=== PATIENT | female | born 1940 | race Caucasian/White ===

== ENCOUNTER → 2019-05-30 | Outpatient (CLI) | payer OTHER ==
[~2019-05-30] VITALS: Ht 157.5 cm; Wt 52.6 kg
[~2019-05-30] MED LIST: GABAPENTIN100 MG PO; NABUMETONE 500500 M1 PO; PROMETHAZINE/C118 ML GT; STIOLTO RESPIMAT4 GM INH; TRAMADOL 50 MG50 MG PO; VITAMINC500 PO; [UNRECOGNIZED DRUG - OTHER] PO
--- NOTE | 2019-05-31 14:06 | PATH ---
[facility] [address] [place] [address] PATHOLOGY RPT PROCEDURE Name: SREEKANTH GIANG Patrice Room #: REG [facility] Manolo#: [id number] ������������������ Admission: 05/30/19 ������������������ Date of : 42 Discharge: Report #: [id number] Path Case #: [id number] [facility] Accession Number: [id number] . 01 Material submitted: . stomach - BIOPSY OF GASTRIC . 01 Clinical history: . Screening, abdomen pain, melena Gastritis, hiatal hernia, esophagitis, diverticulosis . 02 Diagnosis: Gastric mucosa, gastritis, endoscopic biopsy: - Mild reactive gastropathy with focal intestinal metaplasia. - Negative for atrophy or dysplasia. - Negative for Helicobacter pylori (properly controlled immunohistochemical stain performed). (IUV:vitor; 05/31/2019) QMS/05/31/2019 . 02 Electronically signed: . Debora Coker MD, Pathologist NPI- [id number] . 01 Gross description: . The specimen is received in formalin, labeled "Sreekanth Giang, BX of gastric" and consists of multiple fragments of pink-marshall tissue measuring 0.7 x 0.6 x 0.2 cm in aggregate which are entirely submitted in A1. (SDY; 05/30/2019) SYU/SYU . 02 Pathologist provided ICD-10: K31.9 . 02 CPT . 343935, [id number] Specimen Comment: A courtesy copy of this report has been sent to Specimen Comment: [phone], . Specimen Comment: Report sent to and Performed at: [address], [place] [id number] MD Jacob Bingham MD Phone: [phone] Performed at: [address] [id number] MD Debora Coker MD Phone: [phone]
--- NOTE | 2019-06-03 10:31 | P ---
[facility] [place] [address] PROCEDURE REPORT Name: MITZYSREEKANTH [facility] #: [facility] [id number] Admission: 05/30/19 ������������������ Attend Phys: Gt Muro MD Discharge: ������������������ Date of : 41 Report #: [id number] THIS REPORT FOR: //name// CC: Gt Cabrera BRIEF HISTORY: The patient is a 78-year-old woman with recent melanotic stools. She has also had upper abdominal pain and also recently right lower quadrant abdominal pain. PREOPERATIVE DIAGNOSES: Melena, gastrointestinal bleeding. POSTOPERATIVE DIAGNOSIS: 1. Moderately severe left-sided diverticulosis coli with also few scattered diverticula in proximal colon. 2. Internal hemorrhoids. MEDICATIONS: Deep sedation with propofol per anesthesia. SPECIMEN: None. ESTIMATED BLOOD LOSS: None. PROCEDURE: Colonoscopy to cecum and terminal ileum. FINDINGS: Prior to propofol sedation, procedure of colonoscopy discussed with the patient as well as potential risks and its complications. She indicates she understands and desires to proceed. PROCEDURE IN DETAIL: The patient in left lateral decubitus position, digital examination was completed, which revealed no abnormalities. Subsequently, the Olympus video colonoscope was introduced in the rectum, advanced under direct vision. The scope was advanced in the sigmoid colon, which was quite tortuous and somewhat rigid and fixed due to moderately severe diverticular disease. We were unable to pass the scope through the sigmoid colon. The scope was withdrawn. The procedure was restarted with a pediatric colonoscope. On this occasion, the scope passed relatively easily through the sigmoid colon and in the proximal colon. The cecum was identified by the ileocecal valve and the appendiceal orifice. I was able to advance the scope across the ileocecal valve and visualize the distal segment of terminal ileum, which was inspected and noted to be unremarkable. At that point, the scope was slowly withdrawn and careful circumferential views were obtained. Upon slow withdrawal of the scope, the prep was good. The mucosa was within normal limits, normal vascular pattern, normal light reflex. No bleeding lesions were seen on today's exam. No neoplastic or inflammatory or vascular lesions were seen. In the proximal colon, there were few scattered diverticula, especially at the level of the [facility] [address] [place] [address] PROCEDURE REPORT Name: SREEKANTH FORRESTER Room #: REG [facility].#: [id number] Admission: 05/30/19 ������������������ Attend Phys: Gt Muro MD Discharge: ������������������ Date of : 41 Report #: [id number] hepatic flexure. Upon withdrawal of the scope, diverticular disease was not seen in the transverse colon. In the left colon, there was moderately severe diverticular disease without endoscopic evidence of diverticulitis. The scope was withdrawn in the rectum and no mucosal abnormalities were seen. Upon retroflexion, small hemorrhoids were seen. Scope was withdrawn. The patient tolerated the procedure well. CONDITION OF THE PATIENT UPON DISCHARGE: Following procedure, the patient was drowsy, arousable, conversant and will be discharged home when fully ambulatory. INSTRUCTIONS TO THE PATIENT AND FAMILY AT THE TIME OF DISCHARGE: No bleeding lesions were seen. Please see upper endoscopy report for additional details. No neoplastic lesions were seen. She does have significant diverticular disease and I suggest high fiber diet. She has had diffuse abdominal pain. I do not see an explanation for pain on examination today. She was noted to be somewhat tender in the right lower quadrant on exam today prior to the colonoscopy; however, no abnormalities were seen in the distal ileum or the proximal colon. If those symptoms should persist, she will return for further evaluation and possibly CT scan of the abdomen. For screening purposes, typical recommendation would be 10 years. However, at this point in life, she may not benefit from routine screening colonoscopy. She will return to care of Dr. Cabrera and return to see me as needed. Last colonoscopy was about 6 years ago. Withdrawal time from the cecum was 14 minutes 11 seconds. ��������������������������������������������� <ELECTRONICALLY SIGNED> ���������������������������������������� By: Gt Muro MD ��������������������������������������������� 06/03/19 1031 1057 0250 Gt Muro MD /nt
--- NOTE | 2019-06-03 10:31 | P ---
[facility] [address] [place] [address] PROCEDURE REPORT Name: FORRESTERSREEKANTH [facility] #: [facility] [id number] Admission: 05/30/19 ������������������ Attend Phys: Gt Muro MD Discharge: ������������������ Date of : 41 Report #: [id number] THIS REPORT FOR: //name// CC: Gt aCbrera DATE OF SERVICE: 05/30/2019 OUTPATIENT UPPER ENDOSCOPY REPORT BRIEF HISTORY: The patient is a 78-year-old woman who has diffuse abdominal pain and also recently had melena and hematemesis. PREOPERATIVE DIAGNOSES: Melena, hematemesis. POSTOPERATIVE DIAGNOSES: 1. Grade B erosive esophagitis. 2. A 3 cm sliding type hiatus hernia. 3. Diffuse gastritis. MEDICATIONS: Deep sedation with propofol per anesthesia. SPECIMENS: Biopsies of gastritis. ESTIMATED BLOOD LOSS: 3 mL. PROCEDURE: EGD with biopsy. FINDINGS: Prior to propofol sedation, procedure of upper endoscopy discussed with the patient as well as potential risks and its complications. She indicates she understands and desires to proceed. DESCRIPTION OF PROCEDURE: With the patient in left lateral decubitus position, the Olympus video endoscope was inserted in the cervical esophagus under direct vision without difficulty. Examination of this organ through its entire length revealed normal esophageal mucosa down into the distal esophagus. In the distal esophagus, multiple long erosions were seen consistent with grade B erosive esophagitis. The squamocolumnar junction was intact. A Mckinney mucosa was not seen. The scope was advanced and hiatus hernia was approximately 3 cm in greatest dimension. The mucosa and hernia was unremarkable. Scope was advanced in the stomach, which was examined on end view as well as retroflexed views. There was a pattern of diffuse gastritis. No ulcers, erosions or bleeding lesions were seen. There was mostly erythema in the antrum. Upon retroflexion, the hiatus hernia was seen. In the retroflexed position, normal squamocolumnar junction was seen as well. The pylorus, duodenal bulb and postbulbar sweep were [facility] [address] [place] [address] PROCEDURE REPORT Name: SREEKANTH FORRESTER Room #: REG [facility] M..#: [id number] Admission: 05/30/19 ������������������ Attend Phys: Gt Muro MD Discharge: ������������������ Date of : 41 Report #: [id number] inspected and noted to be unremarkable. At that point, the scope was slowly withdrawn and careful circumferential views confirmed the above findings. The patient tolerated the procedure well. CONDITION OF THE PATIENT UPON DISCHARGE: Following the procedure, the patient was drowsy, aroused, conversant and will be discharged home when fully ambulatory INSTRUCTIONS TO THE PATIENT AND FAMILY AT THE TIME OF DISCHARGE: We will follow up on the path and make further recommendations with regard to H. pylori. She clearly has reflux and will have her start omeprazole 40 mg daily. If she does well in about 8 weeks, may try to reduce to a lowest dose to control her symptoms. Proceed with colonoscopy at this time. Bleeding site was not identified today. ��������������������������������������������� <ELECTRONICALLY SIGNED> ���������������������������������������� By: Gt Muro MD ��������������������������������������������� 06/03/19 1031 1014 1151 Gt Muro MD /nt
== END | disposition home or self-care (01) ==
LOC: GI 07:34
DX: K57.30 Diverticulosis of large intestine without perforation or abscess without bleeding (principal); K57.90 Diverticulosis of intestine, part unspecified, without perforation or abscess without bleeding; K64.8 Other hemorrhoids; K31.9 Disease of stomach and duodenum, unspecified; K22.10 Ulcer of esophagus without bleeding; K44.9 Diaphragmatic hernia without obstruction or gangrene; J43.9 Emphysema, unspecified; F17.210 Nicotine dependence, cigarettes, uncomplicated; Z87.19 Personal history of other diseases of the digestive system; Z90.710 Acquired absence of both cervix and uterus; Z98.41 Cataract extraction status, right eye; Z98.42 Cataract extraction status, left eye; Z98.890 Other specified postprocedural states; Z79.899 Other long term (current) drug therapy; Z88.2 Allergy status to sulfonamides
CPT/HCPCS: 62110; 62900

== ENCOUNTER 2019-11-14 09:44 | Observation (INO) | payer OTHER ==
[~2019-11-14] VITALS: Ht 157.5 cm; Wt 53.5 kg
[2019-11-14 10:12] VITALS: BP 144/65
[2019-11-14] MEDS ORDERED: BIOTIN0.5 GM PO (11:06)
[2019-11-14] MEDS ORDERED: TUMERSAID TABL1 EACH PO (11:08)
[2019-11-14] MEDS ORDERED: ASPIR 8181 M1 PO (11:09)
[2019-11-14] MEDS ORDERED: PROTONIX 20 MG20 MG PO (11:10)
[2019-11-14] MEDS ORDERED: LOVAZA1000 MG PO (11:10)
[2019-11-14] MEDS ORDERED: CRESTOR5 MG PO (11:11)
[2019-11-14] MEDS ORDERED: STIOLTO RESPIMAT4 GM INH (11:12)
[2019-11-14 16:21] VITALS: BP 151/61
--- NOTE | 2019-11-14 17:27 | EKG ---
[place] [address] [facility] [place] [address] ELECTROCARDIOGRAM REPORT Name: SREEKANTH FORRESTER Room #: 210-[facility].R.#: [id number] Admission: 11/14/19 Attend Phys: Rivas Stoll MD, Discharge: Date of : 41 Report #: [id number] THIS REPORT FOR: //name// [facility] Test Date: 2019-11-14 Test Time: 10:24:37 Pat Name: SREEKANTH FORRESTER Department: Room: 210 Gender: F Level Designer: Benedict BELTRAN : 1940 Requested By: Rivas Stoll Order Number: [id number] MD: Ugo Noguera Measurements Intervals Josephine Rate: 68 P: 55 IA: 176 QRS: 13 QRSD: 91 T: 55 QT: 412 QTc: 439 Interpretive Statements Sinus rhythm Borderline low voltage, extremity leads No previous ECG available for comparison Electronically Signed On 11-14-2019 17:26:30 [employer] by Ugo Noguera [email or web address] <ELECTRONICALLY SIGNED> By: Ugo Noguera MD 11/14/19 1726 1024 1024 Ugo Noguera MD /MOY
--- NOTE | 2019-11-14 19:12 | NUR ---
PT ARRIVED TO UNIT AT APPROX 1600. VSS. C/O SHOULDER PAIN--NURSE PRACTITIONER NOTIFIED, ORDERS RECEIVED. FLUIDS INFUSING PER ORDRES. POST CATH VITALS INITIATED. BED REST ORDERS MAINTAINED. FAMILY IN ROOM WITH PT. PLAN IS FOR PT TO DC FOLLOWING BEDREST. WILL CONT TO FOLLOW POC, AND DC PT FOLLOWING BEDREST ORDERS AND FLUIDS.
--- NOTE | 2019-11-15 17:03 | CATHLAB ---
[facility] [place] [address] INVASIVE PROCEDURE REPORT Name: MITZYSREEKANTH A Room #: 210-P [facility] ..#: [id number] Admission: 11/14/19 Attend Phys: Rivas Stoll, Discharge: 11/14/19 Date of : 41 Report #: [id number] THIS REPORT FOR: //name// APPROVED REPORT Study performed: 11/14/2019 14:46:20 Patient Details Patient Status: Out-Patient Room #: The patient is a 79 year-old female Event Personnel Rivas Stoll Chlorination Operator, Lisa Koo RTR, BALLOON DIPPER Monitor, Matt Barclay RN, Miriam Alcala RTR Scrub Procedures Performed Art Access - R femoral artery* Left Heart Cath w/or w/o Coronaries [id number] [facility] [address] Initial Mod Sed Same Phys/QHP Gr5y 699757 86047 Mod Sed Same Phys/QHP Ea 233709 Hemostasis w/ Mynx Indication Positive stress test Procedure Narrative A SHEATH BRITE-TIP 6F X 23CM (120151) sheath was inserted into the RFA^. Coronary angiography was performed using coronary diagnostic catheters. The right coronary system was accessed and visualized with a JR4 catheter. The left coronary system was accessed and visualized with a JL4 catheter. The left ventricle was accessed and visualized with a Pigtail catheter. Left ventricular/Aortic Valve gradient assessed via catheter pullback. Left ventriculogram was performed in 30 degree projection. Closure device was deployed with a 6 Fr MYNXGRIP 6/7F #[id number]. There was no hematoma. Intraoperative Conscious Sedation Sedation start time: 13:02 Case end Time: 15:42 Fentanyl 250 mcg Versed 5 mg Conscious sedaton/fluoro time/dose/contrast are combined totals for Left subclavian/Right Iliac Stent procedures and left heart cath. Fluoro Time: 17.30 minutes Dose: DAP 00019.28 cGycm2 1354 mGy Contrast Type and Amount: Omnipaque 224 ml [facility] [address] [place] [address] INVASIVE PROCEDURE REPORT Name: SREEKANTH FORRESTER Patrice Room #: 210-P [facility].#: [id number] Admission: 11/14/19 Attend Phys: Rivas Stoll, Discharge: 11/14/19 Date of : 41 Report #: [id number] Hemodynamics The aortic pressure is 184/67 mmHg with a mean of 109 mmHg. The left ventricular pressure is 194/5 mmHg with a mean of mmHg. The left ventricular end diastolic pressure is 17 mmHg. PCI Technique Lesion Percutaneous coronary intervention was performed on the Left subclavian. PCI Technique Lesion 2 Percutaneous Coronary Intervention was performed on the Prox common iliac. Conclusion #1 normal left ventricular size and systolic function EF 60% #2 left main widely patent giving rise to LAD and circumflex #3 LAD extends to the apex mild diffuse disease mild proximal calcification no occlusive disease #4 circumflex OM nondominant with mild irregularities. Her 5 dominant right coronary with mild diffuse distal disease Recommendations and plan: Continue aggressive risk factor modification. Patient had peripheral intervention today see Dr. Rossi's dictation. Continue aggressive risk factor modification. <ELECTRONICALLY SIGNED> By: Rivas Stoll MD, FACC 11/15/191701 01 01 Rivas Stoll MD, FACC /INF
== END 2019-11-14 19:55 | disposition home or self-care (01) ==
LOC: CATH 09:44 → TBACV 15:38 → 2N 16:25 → CATH 19:25 → 2N 19:55
PROVIDERS: ADMIT Internal Medicine Cardiovascular Disease
DX: I25.10 Atherosclerotic heart disease of native coronary artery without angina pectoris (principal); I10 Essential (primary) hypertension; I73.9 Peripheral vascular disease, unspecified

== ENCOUNTER → 2019-12-09 | Outpatient (CLI) | payer OTHER ==
[~2019-12-09] MED LIST changes: +ASPIR 8181 M1 PO; +BIOTIN0.5 GM PO; +CRESTOR5 MG PO; +LOVAZA1000 MG PO; +PROTONIX 20 MG20 MG PO; +TUMERSAID TABL1 EACH PO
== END ==
LOC: RAD 07:27
DX: J44.9 Chronic obstructive pulmonary disease, unspecified (principal); J98.4 Other disorders of lung

== ENCOUNTER → 2020-04-28 | Outpatient (CLI) | payer OTHER | LOC: SJCVCIMAG 08:44 | PROVIDERS: ATTEND Nuclear Medicine Nuclear Cardiology | DX: I65.23 Occlusion and stenosis of bilateral carotid arteries (principal); R94.31 Abnormal electrocardiogram [ECG] [EKG]; I73.9 Peripheral vascular disease, unspecified; I25.10 Atherosclerotic heart disease of native coronary artery without angina pectoris; I10 Essential (primary) hypertension; E78.1 Pure hyperglyceridemia; E78.00 Pure hypercholesterolemia, unspecified; I77.1 Stricture of artery; J44.9 Chronic obstructive pulmonary disease, unspecified; Z95.828 Presence of other vascular implants and grafts; Z90.710 Acquired absence of both cervix and uterus; Z95.820 Peripheral vascular angioplasty status with implants and grafts; Z79.899 Other long term (current) drug therapy; Z87.891 Personal history of nicotine dependence ==

== ENCOUNTER → 2020-12-29 | Outpatient (CLI) | payer OTHER | LOC: SJCVCIMAG 08:46 | PROVIDERS: ATTEND Internal Medicine Cardiovascular Disease | DX: I07.1 Rheumatic tricuspid insufficiency (principal); I49.8 Other specified cardiac arrhythmias; I73.9 Peripheral vascular disease, unspecified; I10 Essential (primary) hypertension; E78.00 Pure hypercholesterolemia, unspecified; G45.8 Other transient cerebral ischemic attacks and related syndromes; I25.10 Atherosclerotic heart disease of native coronary artery without angina pectoris; I77.9 Disorder of arteries and arterioles, unspecified; M19.90 Unspecified osteoarthritis, unspecified site; J32.9 Chronic sinusitis, unspecified; J44.9 Chronic obstructive pulmonary disease, unspecified; E78.5 Hyperlipidemia, unspecified; M79.662 Pain in left lower leg; M79.661 Pain in right lower leg; I65.23 Occlusion and stenosis of bilateral carotid arteries; F41.9 Anxiety disorder, unspecified; Z87.891 Personal history of nicotine dependence; Z72.89 Other problems related to lifestyle; Z79.899 Other long term (current) drug therapy; Z98.61 Coronary angioplasty status; Z88.2 Allergy status to sulfonamides ==

== ENCOUNTER → 2021-02-09 | Outpatient (CLI) | payer OTHER | LOC: NUC 09:20 | PROVIDERS: ATTEND Specialist | DX: R14.0 Abdominal distension (gaseous) (principal); R11.2 Nausea with vomiting, unspecified; R10.84 Generalized abdominal pain ==

== ENCOUNTER → 2021-07-27 | Outpatient (CLI) | payer OTHER | LOC: SJCVCIMAG 08:57 | PROVIDERS: ATTEND Internal Medicine Cardiovascular Disease | DX: R94.31 Abnormal electrocardiogram [ECG] [EKG] (principal); I65.23 Occlusion and stenosis of bilateral carotid arteries; I25.10 Atherosclerotic heart disease of native coronary artery without angina pectoris; I10 Essential (primary) hypertension; E78.00 Pure hypercholesterolemia, unspecified; I77.1 Stricture of artery; I73.9 Peripheral vascular disease, unspecified; J44.9 Chronic obstructive pulmonary disease, unspecified; F41.9 Anxiety disorder, unspecified; Z79.899 Other long term (current) drug therapy; Z95.5 Presence of coronary angioplasty implant and graft; Z88.8 Allergy status to other drugs, medicaments and biological substances; Z72.89 Other problems related to lifestyle; Z87.891 Personal history of nicotine dependence ==

== ENCOUNTER → 2021-12-24 | Outpatient (CLI) | payer OTHER ==
[~2021-12-24] VITALS: Ht 160 cm; Wt 52.2 kg
--- NOTE | 2021-12-29 12:00 | P ---
[facility] [place] [address] PROCEDURE REPORT Name: SREEKANTH FORRESTER Room #: REG BRYCE French#: [id number] Admission: 12/24/21 Attend Phys: Aniceto Ma Discharge: Date of : 42 Report #: [id number] THIS REPORT FOR: cc: You Cabrera MD, Kirk D. MD [place]hin[place], Christian C. MD ~ cc: You Mas DATE OF SERVICE: 12/24/2021 PROCEDURE PERFORMED: Upper endoscopy with esophageal dilation. HISTORY OF PRESENT ILLNESS: The patient is an 81-year-old female with dysphagia. She underwent a hiatal hernia repair approximately 3 months ago. Since that time, she has been complaining of dysphagia to both solids and liquids. She has stopped her PPI therapy, as she is not having significant heartburn symptoms. She is taking Tums on a p.r.n. basis currently. DESCRIPTION OF PROCEDURE: The risks and benefits of the procedure were explained to the patient, those risks including, but not limited to, bleeding, perforation and the risk of sedation. She understood these risks and gave informed consent. Sedation was given using propofol per anesthesia. Next, using a standard Olympus upper endoscope, the scope was placed in the patient's mouth and advanced under direct vision through the esophagus, stomach and into the second portion of the duodenum. The upper and mid esophagus was normal. In the distal esophagus, grade C erosive esophagitis was noted with a narrowing at the distal esophagus near the GE junction. Overall, the gastric mucosa was normal. On retroflexion, surgical changes of fundoplication were noted. The gastric antrum was normal. The pylorus was normal and patent. The duodenal bulb, first and second portion were all normal. The scope was then brought back up into the patient's stomach and a Savary guidewire was inserted through the scope, leaving the guidewire in place, as the scope was then withdrawn. Next, a 51-[place]er Savary dilation of the esophagus was then performed without difficulty. The wire and dilator removed. The scope was reintroduced into the patient's stomach. There was a small mucosal tear in the proximal esophagus. No evidence of bleeding. Also, a few small tears in the distal esophagus. No bleeding. At this point, the scope was then withdrawn and the procedure terminated. The patient tolerated the procedure well. IMPRESSION: 1. Grade C erosive esophagitis with narrowing of distal esophagus. 2. Surgical changes noted of fundoplication. 3. Otherwise, normal upper endoscopy. RECOMMENDATIONS: 1. Observe the patient post dilation. [address] [address] PROCEDURE REPORT Name: SREEKANTH FORRESTER Room #: REG BRY[facility] French#: [id number] Admission: 12/24/21 Attend Phys: Aniceto Ma Discharge: Date of : 41 Report #: [id number] 2. Would recommend restarting daily PPI therapy and continuing long-term due to her esophagitis. Thank you for allowing me to participate in her care. <ELECTRONICALLY SIGNED> By: Aniceto Mitchell MD 12/29/21 1200 0843 1111 Aniceto Mitchell MD /nt
== END | disposition home or self-care (01) ==
LOC: GI 07:33
PROVIDERS: ATTEND Specialist
DX: R13.19 Other dysphagia (principal); K22.2 Esophageal obstruction; K22.10 Ulcer of esophagus without bleeding; J43.9 Emphysema, unspecified; Z98.890 Other specified postprocedural states; Z87.891 Personal history of nicotine dependence; Z90.710 Acquired absence of both cervix and uterus; Z98.41 Cataract extraction status, right eye; Z98.42 Cataract extraction status, left eye; Z87.19 Personal history of other diseases of the digestive system; Z20.822 Contact with and (suspected) exposure to COVID-19; Z88.2 Allergy status to sulfonamides
CPT/HCPCS: 62110; 62900